=== PATIENT | female | born 1990 | race Caucasian/White ===

== ENCOUNTER 2017-06-16 02:17 | Emergency (ER) | payer MEDICAID ==
[~2017-06-16] VITALS: Ht 157.5 cm; Wt 57.4 kg
[2017-06-16 02:28] VITALS: BP 128/74; Ht 157.5 cm; Wt 57.4 kg
== END 2017-06-16 05:58 | disposition left against medical advice (07) ==
LOC: ED 02:17
DX: Z53.21 Procedure and treatment not carried out due to patient leaving prior to being seen by health care provider (principal)